=== PATIENT | female | born 1945 | race Caucasian/White ===

== ENCOUNTER → 2018-03-20 | Day surgery (SDC) | payer MEDICARE ==
[~2018-03-20] MED LIST: ASPIRIN81 MG PO; FENTANYL CITRATE/PF 100MCG/2 ML INJ ONE; LEVOTHYROXINE100 MC1 PO; LISINOPRIL-HCT1 EAC1 PO; MELATONIN3 MG PO; MIDAZOLAM HCL 2 MG/2 ML VIAL ONE; PANTOPRAZOLE SO40 MG PO; PROBIOTIC & AC1 EACH PO; PROPOFOL IV EMULSION 10 MG/ML 50 ML VIAL ONE; SIMVASTATIN20 MG PO
--- OUTSIDE RECORDS SUMMARY | 2018-03-20 07:02 | XMS REPORT | Clinical Summary ---
Author Author [facility] Organization [facility] Address Unknown Phone Unavailable Care Team Providers Care Log Handling Equipment Operator Name Role Phone John Damon MD PCP Allergies Active Allergy Reactions Severity Noted Date Comments Adhesive Tape-Silicones Other (See Comments) 05/22/2017 Blisters and rash-needs paper tape. Iodine Anaphylaxis, Rash High 04/20/2017 Shellfish Derived Anaphylaxis, Rash High 04/20/2017 Current Medications Prescription Sig. Disp. Refills Start End Date Status Date loratadine (CLARITIN) 10 Take 10 mg by mouth daily Active mg tablet as needed for allergies. simvastatin (ZOCOR) 20 MG Take 20 mg by mouth Active tablet nightly. levothyroxine (SYNTHROID, Take 150 mcg by mouth Active LEVOXYL) 200 mcg tablet every morning. pantoprazole (PROTONIX) Take 40 mg by mouth daily Active 40 MG EC tablet before lunch. lisinopril-hydrochlorothi Take 1 tablet by mouth Active azide daily before breakfast. (PRINZIDE,ZESTORETIC) 20-25 mg per tablet cholecalciferol, vitamin Take 2,000 Units by mouth Active D3, (VITAMIN D3) 2,000 daily before lunch. unit capsule capsule estradiol (ESTRACE) 1 MG Take 1 mg by mouth Active tablet nightly. naproxen (NAPROSYN) 500 Take 500 mg by mouth 2 Active MG tablet (two) times a day as needed for mild pain. aspirin (ECOTRIN) 81 MG Take 81 mg by mouth daily Active enteric coated tablet before breakfast. estradiol (ESTRACE) 1 MG Take 1 mg by mouth 05/15/20 Discontin tablet nightly. 17 ued ibuprofen (ADVIL,MOTRIN) Take 600 mg by mouth 05/15/20 Discontin 600 MG tablet every 6 (six) hours as 17 ued needed for mild pain. Hospital, Clinic, or Ordered Dose Route Frequency Start End Date Status Other Facility Date Administered Medication enoxaparin (LOVENOX) 80 mg subQ 2 times daily at 0600, 05/26/20 Ended syringe 80 mgIndications: 1800 (time critical) 17 17 Acute deep vein thrombosis (DVT) of femoral vein of right lower extremity Active Problems Problem Noted Date Venous insufficiency 05/09/2017 Overview: Added automatically from request for surgery [id number] Varicose veins of both lower extremities 04/20/2017 Last Assessment & Plan: Check for DVT RLE, s/p Bilateral GSV RFA 05/22/17. Venous duplex 05/26/17 and 06/09/17. Patient with asymptomatic venous insufficiency. We discussed the etiology of venous disease in terms of obstruction and reflux. We used a wall anatomical chart to explain the various venous segments of involvement. The normal venous function and disorders of valvular reflux was discussed as well. Treatment options including venous stenting or reconstruction, venous ablation vs. stripping, phlebectomies, sclerotherapy and compression treatment were all discussed. We discussed problems with persistent or recurrent symptoms. Risks including bleeding, DVT, nerve injury, infection, hematomas, and scarring we all covered. No intervention needed at this time, currently asymptomatic. May need sclero in the future. RTC prn. Resolved Problems Problem Noted Date Resolved Date DVT (deep venous thrombosis) 06/22/2017 06/22/2017 Encounters Date Type Specialty Care Team Description 06/22/2017 Office Visit Cardiovascular Lance Lazar Varicose veins of both MD Lam[place] lower extremities Harsh Clay MD (Primary Dx) 06/09/2017 Nurse Only Cardiovascular George Trejo RN 05/31/2017 Telephone Cardiovascular George Trejo RN 05/26/2017 Telephone Cardiovascular George Trejo RN 05/26/2017 Telephone Cardiovascular George Trejo RN 05/26/2017 Orders Only Cardiovascular George Trejo RN Acute deep vein thrombosis (DVT) of femoral vein of right lower extremity (Primary Dx) 05/26/2017 Nurse Only Cardiovascular George Trejo RN 05/26/2017 Orders Only Cardiovascular George Trejo RN Acute deep vein thrombosis (DVT) of femoral vein of right lower extremity (Primary Dx) [facility]2017 [facility] Encounter 05/22/2017 Procedure Pass General Surgery 05/22/2017 Surgery General Surgery Harsh Clay MD Radiofrequency Ablation of Bilateral Greater Saphenous Vein and Stab Avulsion Phlebectomies. 05/18/2017 Telephone Cardiovascular George Trejo RN 05/15/2017 Pre-Admit Pre-Admission Testing Harsh Clay MD Venous insufficiency Testing Appointment 05/15/2017 Anesthesia General Surgery Salvador Zeng APRN Event 05/09/2017 Telephone Cardiovascular America Harper MA Venous insufficiency (Primary Dx) 05/09/2017 Prep for Cardiovascular America Harper MA Venous insufficiency Surgery (Primary Dx) 04/20/2017 Office Visit Cardiovascular Harsh Clay MD Varicose veins of both lower extremities (Primary Dx); Pain in both lower legs 03/20/2017 Orders Only Cardiovascular George Trejo RN Varicose veins of bilateral lower extremities with other complications (Primary Dx) 03/20/2017 Telephone Cardiovascular George Trejo RN after 03/19/2017 Family History Medical History Relation Name Comments Stroke Father Cancer Mother stomach Relation Name Status Comments Father Mother Social History Tobacco Use Types Packs/Day Years Used Date Never Smoker Smokeless Tobacco: Never Used Alcohol Use Drinks/Week oz/Week Comments No Sex Assigned at Date Recorded Not on file Last Filed Vital Signs Vital Sign Reading Time Taken Blood Pressure 123/72 06/22/2017 8:54 AM CDT Pulse 64 06/22/2017 8:54 AM CDT Temperature 36.8 C (98.2 F) 06/22/2017 8:54 AM CDT Respiratory Rate 17 06/22/2017 8:54 AM CDT Oxygen Saturation 98% 05/22/2017 9:00 PM CDT Inhaled Oxygen - - Concentration Weight 78.9 kg (174 lb) 06/22/2017 8:54 AM CDT Height 170.2 cm (5' 7") 06/22/2017 8:54 AM CDT Body Mass Index 27.25 06/22/2017 8:54 AM CDT Plan of Treatment Health Maintenance Due Date Last Done Comments COLONOSCOPY 1993 MAMMOGRAM 1993 SHINGRIX VACCINE (#1) 1993 ZOSTER VACCINE 2003 PNEUMOCOCCAL 2008 POLYSACCHARIDE VACCINE AGE 65 AND OVER PNEUMOCOCCAL-13 2008 INFLUENZA VACCINE 06/13/2018 Implants Implanted Type Area Epitaxial Reactor Operator Device Expiration Model / Identifier Date Serial / Lot Catheter Rdfreq Abltn Closure Fast Cardiovasc N/A: N/A VNUS CF7 7 60 / 7fr 60x7cm - [id number] ular / Implanted: Qty: 1 on 05/22/2017 by Implants Harsh Clay MD Procedures Procedure Name Priority Date/Time Associated Diagnosis Comments NV AN ELECTIVE Routine 05/22/2017 SUPRAGLOTTIC AIRWAY 6:45 PM CDT Procedure Note - Lona Diehl MD - 05/22/2017 6:44 PM CDT Airway Performed by: LONA DIEHL Authorized by: LONA DIEHL Location: OR Urgency: Elective Difficult Airway: No Anesthesio logist: LONA DIEHL Preoxygena chelita with 100% O2: Yes Mask Ventilatio n: Easy mask Final Airway Type: Supraglott ic airway Final LMA: I-Gel LMA Size: 4 Number of Attempts at Approach: 1 Easy atraumatic insertion Radiofrequency Ablation 05/22/2017 Venous insufficiency of Bilateral Greater 1:00 PM CDT Saphenous Vein and Stab Avulsion Phlebectomies. Case Notes 05/19 GEORGE CHG ANESTH FROM MAC/LOCAL TO GEN DG, Vascular Electron Beam Welder from [facility] Special Needs Vascular Electron Beam Welder from [facility] after 03/19/2017 Results * PV duplex venous lower extremity (06/09/2017 10:45 AM) Only the most recent of 2 results within the time period is included. Specimen Performing Laboratory [facility] [address] [place] [address] Narrative [facility] Lower Extremity Venous Duplex Report [id number] [facility], [address], [place], [place] Pat.Name:LAUREN AMERICA Pat.ID:[id number] .Date: 06/09/2017 Refer.MD:HARSH CLAY MD Exam Time: 10:26:00 AM Study Type:LE Venous DOBAge:1945,72YSex: FEMALE Sonogrphr: Hayley Hughes, RVSPat. Stat.:Outpatient TapeVol: TB, CPT - 4: 91098 Echo Event ID:[id number] Order ID:[id number] Reason for Study:Follow up exam post bilateral great saphenous vein ablation. Procedures:Bilateral great saphenous vein ablations 05/22/17 Race:D SUMMARY: DUPLEX SCAN OBSERVATIONS Sousa scale and color Doppler imaging of the right lower extremity demonstrates: Deep Veins Right Left CFV Patent Patent Femoral MidPatent Profunda Patent Popliteal Patent PT (prox) Patent PT (dist) Patent Peroneal Patent Superficial Veins GSV (prox)Obstructed (above knee) GSV (dist)Patent (below knee) SSV Patent RIGHT:The great saphenous vein, from the saphenofemoral junction to the proximal lower leg, is non-compressible, filled with brightly echogenic material and colorflow is absent. The remaining deep veins demonstratenormal compressibility with no evidence of echogenic material in the lumen and colorflow and Doppler signals demonstrate patency. LEFT: Normal findings in the common femoral vein. PHYSICIAN INTERPRETATION 1. Successful ablation of the right above knee great saphenous vein. 2. Doppler signals obtained in the bilateral common femoral vein are comparable. 3. In comparison to study done 05/26/2017 findings demonstrate no evidence of echogenic material in the right common femoral vein lumen. Signed 06/14/2017 09:10 PM Florencio Thomas MD, RPVI Procedure Note Interface, Radiology Results In - 06/14/2017 9:10 PM CDT [facility] Lower Extremity Venous Duplex Report [address] [facility], [address], [place] [address] Pat.Name: AMERICA AGUILAR Pat.ID: [id number] .Date: 06/09/2017 Refer.MD: HARSH CLAY MD Exam Time: 10:26:00 AM Study Type:LE Venous Age: 5 1945,72Y Sex: FEMALE Sonogrphr: NAJMA Do Pat. Stat.:Outpatient Tape Vol: TB, CPT - 4: 89353 Echo Event ID:[id number] Order ID: [id number] Reason for Study:Follow up exam post bilateral great saphenous vein ablation. Procedures:Bilateral great saphenous vein ablations 05/22/17 Race: D SUMMARY: DUPLEX SCAN OBSERVATIONS Sousa scale and color Doppler imaging of the right lower extremity demonstrates: Deep Veins Right Left CFV Patent Patent Femoral Mid Patent Profunda Patent Popliteal Patent PT (prox) Patent PT (dist) Patent Peroneal Patent Superficial Veins GSV (prox) Obstructed (above knee) GSV (dist) Patent (below knee) SSV Patent RIGHT: The great saphenous vein, from the saphenofemoral junction to the proximal lower leg, is non-compressible, filled with brightly echogenic material and colorflow is absent. The remaining deep veins demonstrate normal compressibility with no evidence of echogenic material in the lumen and colorflow and Doppler signals demonstrate patency. LEFT: Normal findings in the common femoral vein. PHYSICIAN INTERPRETATION 1. Successful ablation of the right above knee great saphenous vein. 2. Doppler signals obtained in the bilateral common femoral vein are comparable. 3. In comparison to study done 05/26/2017 findings demonstrate no evidence of echogenic material in the right common femoral vein lumen. Signed 06/14/2017 09:10 PM Florencio Thomas MD, RPVI * ECG Pre/Post Op (05/15/2017 4:26 PM) Component Value Ref Range Ventricular rate 66 Atrial rate 66 NV interval 136 QRSD interval 84 QT interval 444 QTC interval 465 P axis 1 62 QRS axis 1 57 T wave axis 77 EKG impression Normal sinus rhythm-Nonspecific T wave abnormality-Abnormal ECG-No previous ECGs available- Specimen Performing Laboratory [facility] [address] [facility] [address] * Estimated GFR (05/15/2017 4:02 PM) Component Value Ref Range GFR Non Af Amer 54 (A) mL/min/1.73 m2 GFR Af Amer 66 mL/min/1.73 m2 Comment: Chronic kidney disease: <60 mL/min/1.73m2 Kidney failure: <15 mL/min/1.73m2 The estimated GFR is calculated from the IDMS-traceable Modification of Diet in Renal Disease Equation. The accuracy of the calculation is poor when the creatinine is normal. Calculated values >90 mL/min/1.73m2 are not reported. This equation has not been validated in children (<18 years), women, the elderly (>70 years), or ethnic groups other than Caucasians and Americans. Specimen Performing Laboratory Plasma specimen [facility] DEPARTMENT OF PATHOLOGY AND GENOMIC MEDICINE [address] [place] [address] * CBC with platelet and differential (05/15/2017 4:02 PM) Component Value Ref Range WBC 7.25 4.50 - 11.00 k/uL RBC 4.70 4.20 - 5.50 m/uL HGB 14.1 12.0 - 16.0 g/dL HCT 41.8 37.0 - 47.0 % MCV 88.9 82.0 - 100.0 fL MCH 30.0 27.0 - 34.0 pg MCHC 33.7 31.0 - 37.0 g/dL RDW - SD 40.5 37.0 - 55.0 fL MPV 10.8 8.8 - 13.2 fL Platelet count 292 150 - 400 k/uL Nucleated RBC 0.00 /100 WBC Neutrophils 55.8 39.0 - 69.0 % Lymphocytes 32.6 25.0 - 45.0 % Monocytes 7.6 0.0 - 10.0 % Eosinophils 3.0 0.0 - 5.0 % Basophils 0.7 0.0 - 1.0 % Immature granulocytes 0.3Comment: "Immature granulocytes" 0.0 - 1.0 % (promyelocytes, myelocytes, metamyelocytes) Specimen Performing Laboratory Blood [facility] DEPARTMENT OF PATHOLOGY AND [facility] MEDICINE [address] [place] [address] * Comprehensive metabolic panel (05/15/2017 4:02 PM) Component Value Ref Range Sodium 141 135 - 148 mEq/L Potassium 4.0 3.5 - 5.0 mEq/L Chloride 100 98 - 112 mEq/L CO2 22 (L) 24 - 31 mEq/L Anion gap 19 (H) 7 - 15 mEq/L Comment: Starting from February , anion gap calculation no longer incorporates potassium. Please note the change. BUN 19 8 - 23 mg/dL Creatinine 1.0 (H) 0.5 - 0.9 mg/dL Glucose 145 (H) 65 - 99 mg/dL Calcium 9.0 8.8 - 10.2 mg/dL Protein 7.4 6.3 - 8.3 g/dL Comment: 4.6-7.0 g/dL 1 week 4.4-7.6 g/dL 7 months-1year 5.1-7.3 g/dL 1-2 years 5.6-7.5 g/dL >3 years 6.0-8.0 g/dL 18-150 6.3-8.3 g/dL Albumin 4.2 3.5 - 5.0 g/dL A/G ratio 1.3 0.7 - 3.8 Alkaline phosphatase 77 35 - 104 U/L AST 25 10 - 35 U/L ALT 26 5 - 50 U/L Total bilirubin 0.6 0.0 - 1.2 mg/dL Specimen Performing Laboratory Plasma specimen [facility] DEPARTMENT OF PATHOLOGY AND GENOMIC MEDICINE [address] [place] [address] * PV ankle brachial indices extremity complete (04/20/2017 10:43 AM) Specimen [facility] [address] [place] [address] Narrative [facility] Lower Extremity Arterial Physiologic Report [address] [place], [place] Pat.Name:AMERICA AGUILAR Pat.ID:[id number] .Date: 04/20/2017Refer.MD:HARSH CLAY MD Exam Time: 10:22:00 AM Study Type:Physiologic Leg DOBAge:1945,71YSex: FEMALE Sonogrphr: BRINA Doat. Stat.:Outpatient TapeVol: TB, CPT - 4: 85625 Echo Event ID:[id number] Order ID:[id number] Reason for Study:Patient history of bilateral lower extremity pain. Race:D SUMMARY: DOPPLER SIGNALS /ANALOG WAVEFORMS: ANALOG WAVEFORMS ARTERY RIGHT LEFT Posterior Tibial Normal Normal Dorsalis Pedis Abnormal Abnormal Patient seen in clinic by Dr. Clay PHYSICIAN INTERPRETATION: 1.Normal resting ankle brachial indices, bilaterally. 2.Toe brachial index suggests mild disease on the right. 3.Normal left toe brachial index. MEASUREMENTS: PRESSURES Right Brachial Brach P143 mmHg Left Brachial Brach P135 mmHg Right Ankle PT AnklePT P161 mmHg Left Ankle PT AnklePT P142 mmHg Right Ankle DP AnkleDP P147 mmHg Left Ankle DP AnkleDP P156 mmHg Right Great Toe GreatToe P78 mmHg Left Great Toe GreatToe P 105 mmHg Right MAXIM PT MAXIM PT1.13 Left MAXIM PT MAXIM PT0.99 Right MAXIM DP MAXIM DP1.03 Left MAXIM DP MAXIM DP1.09 Right TBI TBI 0.55 Left TBI TBI 0.73 Signed 04/20/2017 11:15 AM Abelardo Crespo MD, RPVI Procedure Note Interface, Radiology Results In - 04/20/2017 11:15 AM CDT [facility] Lower Extremity Arterial Physiologic Report [address] [place] [address] Pat.Name: AMERICA AGUILAR Pat.ID: [id number] .Date: 04/20/2017 Refer.MD: HARSH CLAY MD Exam Time: 10:22:00 AM Study Type:Physiologic Leg Age: 7 1945,71Y Sex: FEMALE Sonogrphr: NAJMA Do Pat. Stat.:Outpatient Tape Vol: TB, CPT - 4: 56718 Echo Event ID:[id number] Order ID: [id number] Reason for Study:Patient history of bilateral lower extremity pain. Race: D SUMMARY: DOPPLER SIGNALS / ANALOG WAVEFORMS: ANALOG WAVEFORMS ARTERY RIGHT LEFT Posterior Tibial Normal Normal Dorsalis Pedis Abnormal Abnormal Patient seen in clinic by Dr. Clay PHYSICIAN INTERPRETATION: 1. Normal resting ankle brachial indices, bilaterally. 2. Toe brachial index suggests mild disease on the right. 3. Normal left toe brachial index. MEASUREMENTS: PRESSURES Right Brachial Brach P 143 mmHg Left Brachial Brach P 135 mmHg Right Ankle PT AnklePT P 161 mmHg Left Ankle PT AnklePT P 142 mmHg Right Ankle DP AnkleDP P 147 mmHg Left Ankle DP AnkleDP P 156 mmHg Right Great Toe GreatToe P 78 mmHg Left Great Toe GreatToe P 105 mmHg Right MAXIM PT MAXIM PT 1.13 Left MAXIM PT MAXIM PT 0.99 Right MAXIM DP MAXIM DP 1.03 Left MAXIM DP MAXIM DP 1.09 Right TBI TBI 0.55 Left TBI TBI 0.73 Signed 04/20/2017 11:15 AM Abelardo Crespo MD, RPVI * PV duplex venous lower extremity reflux (04/18/2017 2:00 PM) Specimen Performing Laboratory [facility] [address] [place] [address] Narrative [facility] Lower Extremity Venous Duplex Report [id number] Pat.Name:AMERICA AGUILAR Pat.ID:[id number] St.Date: 04/18/2017Ref:HARSH CLAY MD Exam Time: 12:56:00 PM Study Type:LE Venous DOBAge:1945,71YSex: FEMALE Sonogrphr: Hayley Hughes, RVSPat. Stat.:Outpatient TapeVol: TB, CPT - 4: 17223 Echo Event ID:[id number] Order ID:[id number] Reason for Study:Patient history of bilateral lower extremity pain. Race:Z SUMMARY: DUPLEX SCAN OBSERVATIONS The exam was performed with the patient in the steep reverse Trendelenburg position.Sousa scale and color Doppler imaging of bilateral lower extremities demonstrates the following: Deep Veins RightLeft Valvular reflux CFV Competent Competent Normal < or equal to 500 msec Femoral Competent CompetentAbnormal (Incompetent) > 500 msec Profunda Competent Competent Popliteal Competent Competent PT (prox) Competent Competent PT (dist) Competent Competent Peroneal Competent Competent Superficial Veins AACV CompetentCompetent GSVIncompetentIncompetent (immediately below the saphenofemoral junction) (557 ms) (917ms) GSV CompetentCompetent (thigh) GSV CompetentCompetent (lower leg) SSV CompetentCompetent RIGHT:The above visualized veins are compressible with no evidence of echogenic material within the vein lumen. Colorflow and Doppler signals demonstrate valvular reflux in the great saphenous vein immediately below the saphenofemoral junction.Non-thrombosed saphenous related varicosities are noted below the knee. LEFT: The above visualized veins are compressible with no evidence of echogenic material within the vein lumen. Colorflow and Doppler signals demonstrate valvular reflux in the great saphenous vein immediately below the saphenofemoral junction. Non-thrombosed saphenous related varicosities are noted below the knee.There is a small non thrombosed varicosity noted at the area of complaint in the mid segment of the lower leg. PHYSICIAN INTERPRETATION: 1.No evidence of venous thrombosis, bilaterally. 2.Valvular reflux of the great saphenous vein immediately below the saphenofemoral junction, bilaterally. 3.Non-thrombosed saphenous related varicosities, bilaterally. 4.There is a small non-thrombosed varicosity noted at the area of complaint in the mid segment of the left lower leg. 5.Doppler signals obtained in the bilateral common femoral vein are comparable. 6.See table and diagram within report for vein measurements. MEASUREMENTS: LEVEINS Left Prox Thigh Prox Thigh GSV0.4 cm Right Prox Thigh Prox Thigh GSV0.4 cm Left Distal Calf SSV Dist Calf LSV A 0.2 cm Right Calf Dist SSV Dist Calf LSV A 0.2 cm Right Mid Calf Mid Calf GSV AP 0.3 cm Mid Calf LSV AP 0.2 cm Left Mid Thigh Mid Thigh GSV A 0.5 cm Right Mid Thigh Mid Thigh GSV A 0.4 cm Left Knee Knee GSV AP0.2 cm Right Knee Knee GSV AP0.3 cm Left Prox Calf Prox Calf LSV A 0.2 cm Prox Calf GSV A 0.2 cm Right Prox Calf Prox Calf LSV A 0.1 cm Prox Calf GSV A 0.2 cm Left Dist Thigh Dist Thigh GSV0.4 cm Right Dist Thigh Dist Thigh GSV0.3 cm Right Dist Calf Dist Calf GSV A 0.2 cm Left Mid Calf Mid Calf LSV AP 0.2 cm Mid Calf GSV AP 0.3 cm Left SFJ SFJ GSV AP 0.8 cm Right SFJ SFJ GSV AP 0.6 cm Left Dist Calf Dist Calf GSV A 0.2 cm DOPPLER SSV Pop fossa Left SSV Pop fo 0.3 cm Right SSV Pop f 0.1 cm Signed 04/19/2017 11:22:32 AM Abelardo Crespo MD, RPVI Revised Procedure Note Interface, Radiology Results In - 04/19/2017 11:22 AM CDT [facility] Lower Extremity Venous Duplex Report [address] [facility], [address], [place], [place] [address] Pat.Name: AMERICA AGUILAR Pat.ID: [id number] .Date: 04/18/2017 Refer.MD: HARSH CLAY MD Exam Time: 12:56:00 PM Study Type:LE Venous Age: 7 1945,71Y Sex: FEMALE Sonogrphr: NAJMA Do Pat. Stat.:Outpatient Tape Vol: TB, CPT - 4: 01139 Echo Event ID:[id number] Order ID: [id number] Reason for Study:Patient history of bilateral lower extremity pain. Race: Z SUMMARY: DUPLEX SCAN OBSERVATIONS The exam was performed with the patient in the steep reverse Trendelenburg position. Sousa scale and color Doppler imaging of bilateral lower extremities demonstrates the following: Deep Veins Right Left Valvular reflux CFV Competent Competent Normal < or equal to 500 msec Femoral Competent Competent Abnormal (Incompetent) > 500 msec Profunda Competent Competent Popliteal Competent Competent PT (prox) Competent Competent PT (dist) Competent Competent Peroneal Competent Competent Superficial Veins AACV Competent Competent GSV Incompetent Incompetent (immediately below the saphenofemoral junction) (557 ms) (917ms) GSV Competent Competent (thigh) GSV Competent Competent (lower leg) SSV Competent Competent RIGHT: The above visualized veins are compressible with no evidence of echogenic material within the vein lumen. Colorflow and Doppler signals demonstrate valvular reflux in the great saphenous vein immediately below the saphenofemoral junction. Non-thrombosed saphenous related varicosities are noted below the knee. LEFT: The above visualized veins are compressible with no evidence of echogenic material within the vein lumen. Colorflow and Doppler signals demonstrate valvular reflux in the great saphenous vein immediately below the saphenofemoral junction. Non-thrombosed saphenous related varicosities are noted below the knee. There is a small non thrombosed varicosity noted at the area of complaint in the mid segment of the lower leg. PHYSICIAN INTERPRETATION: 1. No evidence of venous thrombosis, bilaterally. 2. Valvular reflux of the great saphenous vein immediately below the saphenofemoral junction, bilaterally. 3. Non-thrombosed saphenous related varicosities, bilaterally. 4. There is a small non-thrombosed varicosity noted at the area of complaint in the mid segment of the left lower leg. 5. Doppler signals obtained in the bilateral common femoral vein are comparable. 6. See table and diagram within report for vein measurements. MEASUREMENTS: LEVEINS Left Prox Thigh Prox Thigh GSV 0.4 cm Right Prox Thigh Prox Thigh GSV 0.4 cm Left Distal Calf SSV Dist Calf LSV A 0.2 cm Right Calf Dist SSV Dist Calf LSV A 0.2 cm Right Mid Calf Mid Calf GSV AP 0.3 cm Mid Calf LSV AP 0.2 cm Left Mid Thigh Mid Thigh GSV A 0.5 cm Right Mid Thigh Mid Thigh GSV A 0.4 cm Left Knee Knee GSV AP 0.2 cm Right Knee Knee GSV AP 0.3 cm Left Prox Calf Prox Calf LSV A 0.2 cm Prox Calf GSV A 0.2 cm Right Prox Calf Prox Calf LSV A 0.1 cm Prox Calf GSV A 0.2 cm Left Dist Thigh Dist Thigh GSV 0.4 cm Right Dist Thigh Dist Thigh GSV 0.3 cm Right Dist Calf Dist Calf GSV A 0.2 cm Left Mid Calf Mid Calf LSV AP 0.2 cm Mid Calf GSV AP 0.3 cm Left SFJ SFJ GSV AP 0.8 cm Right SFJ SFJ GSV AP 0.6 cm Left Dist Calf Dist Calf GSV A 0.2 cm DOPPLER SSV Pop fossa Left SSV Pop fo 0.3 cm Right SSV Pop f 0.1 cm Signed 04/19/2017 11:22:32 AM Abelardo Crespo MD, RPVI Revised after 03/19/2017 Insurance Payer Benefit Subscriber ID Type Phone Address Plan / Group [employer] xxxxxxxxx [facility]
== END | disposition home or self-care (01) ==
LOC: OR 06:59
PROVIDERS: ATTEND Internal Medicine Gastroenterology
DX: Z12.11 Encounter for screening for malignant neoplasm of colon (principal); D12.2 Benign neoplasm of ascending colon; D12.3 Benign neoplasm of transverse colon; K31.7 Polyp of stomach and duodenum; K29.70 Gastritis, unspecified, without bleeding; K44.9 Diaphragmatic hernia without obstruction or gangrene; K64.8 Other hemorrhoids; I10 Essential (primary) hypertension; E78.5 Hyperlipidemia, unspecified; E03.9 Hypothyroidism, unspecified; Z91.041 Radiographic dye allergy status; Z01.810 Encounter for preprocedural cardiovascular examination; Z79.82 Long term (current) use of aspirin; Z83.79 Family history of other diseases of the digestive system
CPT/HCPCS: 43239; 45384; 93005; J2250

== ENCOUNTER 2021-09-27 16:54 | Emergency (ER) | payer MEDICARE, OTHER ==
[~2021-09-27] VITALS: Ht 172.7 cm; Wt 79.8 kg
[~2021-09-27 16:54] MED LIST changes: -FENTANYL CITRATE/PF 100MCG/2 ML INJ ONE; -MIDAZOLAM HCL 2 MG/2 ML VIAL ONE; -PROPOFOL IV EMULSION 10 MG/ML 50 ML VIAL ONE
[2021-09-27] MEDS ORDERED: ONDANSETRON HCL 4 MG ORAL DISINTEGRATING TAB PO ONE (17:15)
[2021-09-27] MEDS ORDERED: ACETAMINOPHEN 325 MG TAB PO ONE (17:15)
[2021-09-27 18:36] VITALS: BP 114/63
== END 2021-09-27 18:39 | disposition home or self-care (01) ==
LOC: ER 17:02
DX: S06.0X0A Concussion without loss of consciousness, initial encounter (principal); W07.XXXA Fall from chair, initial encounter; Y92.511 Restaurant or cafe as the place of occurrence of the external cause; I10 Essential (primary) hypertension; E03.9 Hypothyroidism, unspecified; K21.9 Gastro-esophageal reflux disease without esophagitis; G47.00 Insomnia, unspecified; Z95.5 Presence of coronary angioplasty implant and graft
CPT/HCPCS: 70450; 72125; 93005; 99284; Q0162

== ENCOUNTER 2022-02-10 08:58 | Emergency (ER) | payer MEDICARE ==
[~2022-02-10] VITALS: Ht 172.7 cm; Wt 79.8 kg
[2022-02-10] MEDS ORDERED: ONDANSETRON HCL INJ 2MG/ML 2ML 2 MG/ML VIAL IV STA (09:09)
[2022-02-10] MEDS ORDERED: SODIUM CHLORIDE 0.9% 1000ML 1,000 ML IV SCH (09:15)
[2022-02-10] MEDS ORDERED: Morphine 4mg Syringe 4 MG/ML INJ IV ONE (09:15)
[2022-02-10] MEDS ORDERED: KETOROLAC TROMETHAMINE 30 MG/ML VIAL IV STA (09:47)
[2022-02-10 10:14] LABS: BASOPHILS # (AUTO) 0.1 (0.0-0.1); BASOPHILS % 0.6 % (0.0-1.0); EOSINOPHILS # (AUTO) 0.2 (0.0-0.4); HEMATOCRIT 40.7 % (34.2-44.1); HEMOGLOBIN 13.7 g/dL (12.0-16.0); LYMPHOCYTES # (AUTO) 1.6 (1.0-3.2); LYMPHOCYTES % 19.8 % (18.0-39.1); MEAN CORPUSCULAR HEMOGLOBIN 30.6 pg (28-32); MEAN CORPUSCULAR HGB CONC 33.7 g/dL (31-35); MEAN CORPUSCULAR VOLUME 91.1 fL (81-99); MONOCYTES # (AUTO) 0.6 (0.2-0.8); MONOCYTES % 7.7 % (4.4-11.3); NEUTROPHILS # (AUTO) 5.7 (2.1-6.9); NEUTROPHILS % 69.3 % (38.7-80.0); PLATELET COUNT 293 x10e3/uL (140-360); RED BLOOD COUNT 4.47 x10e6/uL (3.6-5.1); RED CELL DISTRIBUTION WIDTH 12.6 % (11.7-14.4)
[2022-02-10 10:35] LABS: ALBUMIN 4.1 g/dL (3.5-5.0); ALBUMIN/GLOBULIN RATIO 1.3 (0.8-2.0); ANION GAP 12.3 mmol/L (8-16); CALCIUM 9.2 mg/dL (8.4-10.2); CREATININE, SERUM 1.06 mg/dL (0.57-1.11); POTASSIUM 4.3 mmol/L (3.5-5.1)
[2022-02-10 10:40] LABS: CLARITY,URINE CLEAR (CLEAR); COLOR,URINE YELLOW (YELLOW); LEUKOCYTE ESTERASE ,URINE NEGATIVE (NEGATIVE); NITRITE,URINE NEGATIVE (NEGATIVE); PROTEIN,URINE DIPSTICK NEGATIVE (NEGATIVE)
[2022-02-10 10:41] LABS: KETONES,URINE NEGATIVE (NEGATIVE); URINE UROBILINOGEN 0.2 mg/dL (0.2 - 1)
[2022-02-10 10:43] LABS: BACTERIA,URINE FEW /HPF; EPITHELIAL CELLS,URINE FEW /LPF; RBC,URINE 0-5 /HPF (0-5); URIC ACID CRYSTALS,URINE MODERATE (FEW); WBC,URINE (MAN) 0-5 /HPF (0-5)
[2022-02-10] MEDS ORDERED: ONDANSETRON ODT4 MG PO (12:31)
[2022-02-10] MEDS ORDERED: AMLODIPINE BESY10 MG PO (22:29)
[2022-02-10] MEDS ORDERED: IRBESARTAN150 MG PO (22:29)
[2022-02-10] MEDS ORDERED: RANEXA500 MG PO (22:32)
[2022-02-10] MEDS ORDERED: FOLIC ACID-VIT1 EACH PO (22:32)
[2022-02-10] MEDS ORDERED: CLOPIDOGREL75 MG PO (22:32)
[2022-02-10] MEDS ORDERED: LASIX20 MG PO (22:32)
[2022-02-10] MEDS ORDERED: VITAMIN B-121000 MCG PO (22:32)
[2022-02-10] MEDS ORDERED: NEURONTIN300 MG PO (22:32)
[2022-02-11] MEDS ORDERED: ASPIRIN EC81 MG PO (07:32)
[2022-02-11] MEDS ORDERED: LOPRESSOR25 MG PO (07:32)
[2022-02-11] MEDS ORDERED: Atorvastatin PO (07:32)
[2022-02-11] MEDS ORDERED: PANTOPRAZOLE SO40 MG PO (07:32)
== END 2022-02-10 12:41 | disposition home or self-care (01) ==
LOC: ER 09:37
DX: R10.31 Right lower quadrant pain (principal); I10 Essential (primary) hypertension; E03.9 Hypothyroidism, unspecified; I25.10 Atherosclerotic heart disease of native coronary artery without angina pectoris; K21.9 Gastro-esophageal reflux disease without esophagitis; G62.9 Polyneuropathy, unspecified; G47.00 Insomnia, unspecified; I73.9 Peripheral vascular disease, unspecified; Z95.5 Presence of coronary angioplasty implant and graft
CPT/HCPCS: 36415; 74176; 80053; 81001; 83690; 85025; 93005; 99284; J1885; J7030

== ENCOUNTER 2022-02-10 16:35 | Observation (INO) | payer MEDICARE ==
[~2022-02-10] VITALS: Ht 172.7 cm; Wt 79.8 kg
[~2022-02-10 16:35] MED LIST changes: +ONDANSETRON ODT4 MG PO
[2022-02-10 17:19] LABS: BASOPHILS # (AUTO) 0.1 (0.0-0.1); BASOPHILS % 0.6 % (0.0-1.0); EOSINOPHILS # (AUTO) 0.1 (0.0-0.4); EOSINOPHILS % 1.3 % (0.0-6.0); HEMATOCRIT 39.9 % (34.2-44.1); HEMOGLOBIN 13.6 g/dL (12.0-16.0); LYMPHOCYTES # (AUTO) 1.9 (1.0-3.2); LYMPHOCYTES % 22.3 % (18.0-39.1); MEAN CORPUSCULAR HEMOGLOBIN 30.5 pg (28-32); MEAN CORPUSCULAR HGB CONC 34.1 g/dL (31-35); MEAN CORPUSCULAR VOLUME 89.5 fL (81-99); MONOCYTES # (AUTO) 0.8 (0.2-0.8); MONOCYTES % 9.2 % (4.4-11.3); NEUTROPHILS # (AUTO) 5.5 (2.1-6.9); NEUTROPHILS % 66.2 % (38.7-80.0); PLATELET COUNT 298 x10e3/uL (140-360); RED BLOOD COUNT 4.46 x10e6/uL (3.6-5.1); RED CELL DISTRIBUTION WIDTH 12.5 % (11.7-14.4)
[2022-02-10] MEDS ORDERED: ONDANSETRON HCL INJ 2MG/ML 2ML 2 MG/ML VIAL IV PRN (17:30)
[2022-02-10] MEDS ORDERED: Morphine 4mg Syringe 4 MG/ML INJ IV PRN (17:30)
[2022-02-10 17:41] LABS: ALANINE AMINOTRANSFERASE 23 IU/L (0-55); ALBUMIN 4.1 g/dL (3.5-5.0); ALBUMIN/GLOBULIN RATIO 1.2 (0.8-2.0); ALKALINE PHOSPHATASE 88 IU/L (40-150); ANION GAP 12.9 mmol/L (8-16); BLOOD UREA NITROGEN 16 mg/dL (7-26); BUN/CREATININE RATIO 17 (6-25); CALCIUM 8.7 mg/dL (8.4-10.2); CARBON DIOXIDE 22 mmol/L (22-29); CHLORIDE 109 mmol/L (98-107); CREATINE KINASE 88 IU/L (29-168); CREATININE, SERUM 0.95 mg/dL (0.57-1.11); EST GLOMERULAR FILTRATION RATE 57 ML/MIN (60-); GLUCOSE 107 mg/dL (74-118); POTASSIUM 3.9 mmol/L (3.5-5.1); SODIUM 140 mmol/L (136-145)
[2022-02-10 18:41] VITALS: BP 142/74
[2022-02-10 20:00] VITALS: BP 137/87
[2022-02-10 21:00] VITALS: BP 137/87
[2022-02-10] MEDS ORDERED: AMLODIPINE BESY10 MG PO (22:29)
[2022-02-10] MEDS ORDERED: IRBESARTAN150 MG PO (22:29)
[2022-02-10] MEDS ORDERED: ZOLPIDEM TARTRATE 5 MG TAB PO PRN (22:30)
[2022-02-10] MEDS ORDERED: CLOPIDOGREL75 MG PO (22:32)
[2022-02-10] MEDS ORDERED: FOLIC ACID-VIT1 EACH PO (22:32)
[2022-02-10] MEDS ORDERED: LASIX20 MG PO (22:32)
[2022-02-10] MEDS ORDERED: RANEXA500 MG PO (22:32)
[2022-02-10] MEDS ORDERED: VITAMIN B-121000 MCG PO (22:32)
[2022-02-10] MEDS ORDERED: NEURONTIN300 MG PO (22:32)
[2022-02-11] VITALS: BP 118/65
[2022-02-11] MEDS ORDERED: CHLORDIAZEPOXIDE/CLIDINIUM 1 CAP PO ONE (02:00)
[2022-02-11 04:00] VITALS: BP 120/63
[2022-02-11 05:00] LABS: BASOPHILS % 0.4 % (0.0-1.0); EOSINOPHILS # (AUTO) 0.2 (0.0-0.4); EOSINOPHILS % 2.4 % (0.0-6.0); HEMATOCRIT 36.7 % (34.2-44.1); HEMOGLOBIN 12.4 g/dL (12.0-16.0); LYMPHOCYTES # (AUTO) 1.8 (1.0-3.2); LYMPHOCYTES % 25.4 % (18.0-39.1); MEAN CORPUSCULAR HEMOGLOBIN 30.5 pg (28-32); MEAN CORPUSCULAR HGB CONC 33.8 g/dL (31-35); MEAN CORPUSCULAR VOLUME 90.2 fL (81-99); MONOCYTES # (AUTO) 0.7 (0.2-0.8); NEUTROPHILS # (AUTO) 4.4 (2.1-6.9); NEUTROPHILS % 61.5 % (38.7-80.0); PLATELET COUNT 266 x10e3/uL (140-360); RED BLOOD COUNT 4.07 x10e6/uL (3.6-5.1); RED CELL DISTRIBUTION WIDTH 12.4 % (11.7-14.4)
[2022-02-11 05:31] LABS: ALBUMIN 3.6 g/dL (3.5-5.0); ALBUMIN/GLOBULIN RATIO 1.4 (0.8-2.0); CALCIUM 8.3 mg/dL (8.4-10.2); CREATININE, SERUM 0.89 mg/dL (0.57-1.11)
[2022-02-11 05:52] LABS: CREATINE KINASE 62 IU/L (29-168)
[2022-02-11] MEDS ORDERED: ONDANSETRON HCL 4 MG ORAL DISINTEGRATING TAB PO PRN (07:15)
[2022-02-11] MEDS ORDERED: LEVOTHYROXINE SODIUM 100 MCG TAB PO SCH (07:30)
[2022-02-11] MEDS ORDERED: CHLORDIAZEPOXIDE/CLIDINIUM 1 CAP PO SCH (07:30)
[2022-02-11] MEDS ORDERED: Atorvastatin PO (07:32)
[2022-02-11] MEDS ORDERED: ASPIRIN EC81 MG PO (07:32)
[2022-02-11] MEDS ORDERED: PANTOPRAZOLE SO40 MG PO (07:32)
[2022-02-11] MEDS ORDERED: LOPRESSOR25 MG PO (07:32)
[2022-02-11 07:59] VITALS: BP 98/56
[2022-02-11 07:59] LABS: CHOL/HDL RATIO 4.6 (3.0-3.6)
[2022-02-11 08:00] VITALS: BP 98/56
[2022-02-11] MEDS ORDERED: ASPIRIN 81 MG ENTERIC COATED PO SCH (09:00)
[2022-02-11] MEDS ORDERED: GABAPENTIN 300 MG CAP PO SCH (09:00)
[2022-02-11] MEDS ORDERED: CLOPIDOGREL BISULFATE 75 MG TAB PO SCH (09:00)
[2022-02-11] MEDS ORDERED: IRBESARTAN 150 MG TAB PO SCH (09:00)
[2022-02-11] MEDS ORDERED: AMLODIPINE BESYLATE 10 MG TAB PO SCH (09:00)
[2022-02-11] MEDS ORDERED: RANOLAZINE 500 MG TABSR PO SCH (09:00)
[2022-02-11] MEDS ORDERED: METOPROLOL TARTRATE 25 MG TAB PO SCH (09:00)
[2022-02-11] MEDS ORDERED: ENOXAPARIN SOD INJ 40 MG/0.4 ML SYR SC SCH (17:00)
[2022-02-11] MEDS ORDERED: ATORVASTATIN 40 MG TAB PO SCH (21:00)
== END 2022-02-11 11:10 | disposition home or self-care (01) ==
LOC: ER 17:18 → ERHOLD 17:25 → MED/SURG 18:30
PROVIDERS: ADMIT Internal Medicine; ATTEND Internal Medicine
DX: R10.13 Epigastric pain (principal); I10 Essential (primary) hypertension; E03.9 Hypothyroidism, unspecified; I25.10 Atherosclerotic heart disease of native coronary artery without angina pectoris; K21.9 Gastro-esophageal reflux disease without esophagitis; E78.5 Hyperlipidemia, unspecified; R73.03 Prediabetes; Z90.49 Acquired absence of other specified parts of digestive tract; Z95.5 Presence of coronary angioplasty implant and graft; Z91.041 Radiographic dye allergy status; Z91.048 Other nonmedicinal substance allergy status; Z82.49 Family history of ischemic heart disease and other diseases of the circulatory system; Z20.822 Contact with and (suspected) exposure to COVID-19
CPT/HCPCS: 36415 ×2; 71045; 80053 ×2; 80061; 82550 ×2; 82553 ×2; 83036; 83880; 84484 ×2; 85025 ×2; 93005; 94799; 99284; C9113; G0378 ×2; J2270; J2405; U0002

== ENCOUNTER 2024-03-10 15:47 | Emergency (ER) | payer MEDICARE ==
[~2024-03-10] VITALS: Ht 172.7 cm; Wt 70.3 kg
[~2024-03-10 15:47] MED LIST changes: +AMLODIPINE BESY10 MG PO; +ASPIRIN EC81 MG PO; +Atorvastatin PO; +CLOPIDOGREL75 MG PO; +FOLIC ACID-VIT1 EACH PO; +IRBESARTAN150 MG PO; +LASIX20 MG PO; +LOPRESSOR25 MG PO; +NEURONTIN300 MG PO; +RANEXA500 MG PO; +VITAMIN B-121000 MCG PO
[2024-03-10 18:38] VITALS: BP 132/70; PULSE 64; RESP 18; O2SAT 96
== END 2024-03-10 18:38 | disposition home or self-care (01) ==
LOC: ER 16:17
DX: S22.31XA Fracture of one rib, right side, initial encounter for closed fracture (principal); S60.221A Contusion of right hand, initial encounter; S40.011A Contusion of right shoulder, initial encounter; S80.02XA Contusion of left knee, initial encounter; S80.01XA Contusion of right knee, initial encounter; W01.198A Fall on same level from slipping, tripping and stumbling with subsequent striking against other object, initial encounter; Y93.02 Activity, running; Y92.89 Other specified places as the place of occurrence of the external cause; I10 Essential (primary) hypertension; E03.9 Hypothyroidism, unspecified; I25.10 Atherosclerotic heart disease of native coronary artery without angina pectoris; K21.9 Gastro-esophageal reflux disease without esophagitis; I73.9 Peripheral vascular disease, unspecified; G62.9 Polyneuropathy, unspecified; Z95.5 Presence of coronary angioplasty implant and graft
CPT/HCPCS: 71101; 99283